=== PATIENT | male | born 1960 | race Caucasian/White ===

== ENCOUNTER 2016-11-07 17:56 | Emergency (ER) | payer MEDICARE, OTHER | END 2016-11-07 19:10 | disposition home or self-care (01) | LOC: ER1 17:56 | DX: H61.21 Impacted cerumen, right ear (principal); E11.9 Type 2 diabetes mellitus without complications; F17.200 Nicotine dependence, unspecified, uncomplicated | CPT/HCPCS: 69210; 99282 ==